=== PATIENT | female | born 1980 | race Caucasian/White ===

== ENCOUNTER 2017-09-14 19:45 | Emergency (ER) | payer OTHER ==
[2017-09-14 19:55] VITALS: BMI 23.6
[2017-09-14 20:33] LABS: BILIRUBIN,URINE NEGATIVE (NEGATIVE); BLOOD/HEMOGLOBIN,URINE NEGATIVE (NEGATIVE); GLUCOSE, URINE NEGATIVE (NEGATIVE); KETONES,URINE NEGATIVE (NEGATIVE); LEUKOCYTE ESTERASE ,URINE NEGATIVE (NEGATIVE); NITRITES,URINE NEGATIVE (NEGATIVE); PROTEIN,URINE NEGATIVE (NEGATIVE); UROBILINOGEN,URINE NORMAL (NORMAL)
[2017-09-14 20:41] LABS: APPEARANCE,URINE CLEAR (CLEAR); BACTERIA,URINE NEGATIVE /HPF (NEGATIVE); COLOR,URINE YELLOW (YELLOW); RBC,URINE 0-1 /HPF (NONE SEEN); SQUAMOUS EPITHELIAL CELL,UR FEW /HPF (NEGATIVE)
[2017-09-14 20:44] LABS: BASOPHILS # (AUTO) 0.1 X10^3/uL (0.0-0.1); BASOPHILS % (AUTO) 0.8 % (0.2-1.0); EOSINOPHILS # (AUTO) 0.8 x10^3/uL (0.0-0.2); EOSINOPHILS % (AUTO) 9.8 % (0.9-2.9); HEMATOCRIT 38.8 % (36.0-47.0); HEMOGLOBIN 13.4 g/dL (12.0-16.0); LYMPHOCYTES # (AUTO) 3.2 X10^3/uL (1.3-2.9); LYMPHOCYTES % (AUTO) 41.6 % (21.0-51.0); MEAN CORPUSCULAR HEMOGLOBIN 30.8 pg (27.0-34.0); MEAN CORPUSCULAR HGB CONC 34.5 g/dL (33.0-35.0); MEAN CORPUSCULAR VOLUME 89.5 fL (80.0-100.0); MEAN PLATELET VOLUME 10.2 fL (7.4-11.0); MONOCYTES # (AUTO) 0.6 x10^3/uL (0.3-0.8); MONOCYTES % (AUTO) 7.4 % (0.0-13.0); NEUTROPHILS # (AUTO) 3.1 x10^3/uL (2.2-4.8); NEUTROPHILS % (AUTO) 40.4 % (42.0-75.0); PLATELET COUNT 171 X10^3/uL (150.0-450.0); RED BLOOD COUNT 4.33 X10^6/uL (3.5-5.4); RED CELL DISTRIBUTION WIDTH 12.7 % (11.6-16.5); WHITE BLOOD COUNT 7.7 X10^3/uL (3.6-10.0)
--- NOTE | 2017-09-14 20:54 | DR.GENAD ---
HPI - PCP Primary Care Physician: BRYANT KOROMA - HPI Comment HPI Comment: has been to PCP, dx'd with neuropathic pain. Still with numbness fingers and toes, bilat LE swelling. Pt has had prior episodes and this 'comes and goes' - Complaint/Symptoms Chief Complaint:: LOWER EXT SWOLLEN PT C/O NUMBNESS IN TOES AND FINGERS AND CHEST PAIN FOR 2 WEEKS - Nurses notes reviewed Nurses Notes Review: Yes - Source History Provided: Patient - Mode of Arrival Mode of Arrival: Ambulatory - Timing Onset of Chief Complaint: 08/31/17 Came on: Gradually - Duration Duration: Since Onset - Severity Severity: Moderate PMH - PMH Past Medical History: No Past Surgical History: Yes Surgical History: Cholecystectomy, Hysterectomy - Family History History of Family Medical Conditions: Yes Family Medical History: Diabetes Mellitus, [place], Coronary Artery Disease, Heart Failure, Sudden Cardiac , Hypertension - Social History Type of Tobacco Use: Cigarettes Does any household member use tobacco: Yes Alcohol Use: None Do you use any recreational Drugs:: No Lives With: Family Lives Where: Home - infectious screening In the last 2 months have you had wt loss of >10#?: NO Have you had fever, night sweats or hemotysis?: No Have you traveled outside the country in the last 6 months?: No Isolation: Standard ROS - Review of Systems Constitutional: No Symptoms Reported Eyes: No Symptoms Reported ENTM: No Symptoms Reported Respiratoy: No Symptoms Reported Cardiovascular: Chest Pain, Edema (lower ext edema) Gastrointestinal/Abdominal: No Symptoms Reported Genitourinary: No Symptoms Reported Neurological: Paresthesia Integumentary: No Symptoms Reported Hematologic/Lymphatic: No Symptoms Reported Endocrine: No Symptoms Reported Psychiatric: No Symptoms Reported All Other Systems: Reviewed and Negative PE - Vital Signs Vitals: Temperature 97.8 F Pulse Rate 100 Respiratory Rate 18 Blood Pressure 116/58 O2 Sat by Pulse Oximetry 100 - General Limitations: No Limitations General Appearance: Alert, In No Apparent Distress - Head Head Exam: Normal Inspection - Eyes Eye exam: Normal Appearance - ENT ENT Exam: Normal Exam - Neck Neck Exam: Normal Inspection, Full ROM, Trachea Midline. negative: Tenderness, Meningismus, Lymphadenopathy - Chest Chest Inspection: Symmetric Chest Wall Rise - Respiratory Respiratory Exam: Normal Lung Sounds Bilat Respiratory Exam: Bilateral Clear to Auscultation - Cardiovascular Cardiovascular Exam: Regular Rate, Normal Heart Sounds. negative: Systolic Murmur, Diastolic Murmur - Abdominal Exam Abdominal Exam: Normal Inspection, Normal Bowel Sounds, Soft - Extremities Extremities Exam: Edema - Neurologic Neurological Exam: Alert, Oriented X3 - Psychiatric Psychiatric Exam: Normal Affect, Normal Mood - Skin Skin Exam: Warm, Dry, Intact ROR - Labs Reviewed Laboratory Results Reviewed?: Yes Result Diagrams: 09/14/17 20:35 09/14/17 20:35 Laboratory: WBC 7.7 X10^3/uL (3.6-10.0) 09/14/17 20:35 RBC 4.33 X10^6/uL (3.5-5.4) 09/14/17 20:35 Hgb 13.4 g/dL (12.0-16.0) 09/14/17 20:35 Hct 38.8 % (36.0-47.0) 09/14/17 20:35 MCV 89.5 fL (80.0-100.0) 09/14/17 20:35 MCH 30.8 pg (27.0-34.0) 09/14/17 20:35 MCHC 34.5 g/dL (33.0-35.0) 09/14/17 20:35 RDW 12.7 % (11.6-16.5) 09/14/17 20:35 Plt Count 171 X10^3/uL (150.0-450.0) 09/14/17 20:35 MPV 10.2 fL (7.4-11.0) 09/14/17 20:35 Neut % 40.4 % (42.0-75.0) L 09/14/17 20:35 Lymph % 41.6 % (21.0-51.0) 09/14/17 20:35 [place] % 7.4 % (0.0-13.0) 09/14/17 20:35 Eos % 9.8 % (0.9-2.9) H 09/14/17 20:35 Baso % 0.8 % (0.2-1.0) 09/14/17 20:35 Neut # 3.1 x10^3/uL (2.2-4.8) 09/14/17 20:35 Lymph # 3.2 X10^3/uL (1.3-2.9) H 09/14/17 20:35 [place] # 0.6 x10^3/uL (0.3-0.8) 09/14/17 20:35 Eos # 0.8 x10^3/uL (0.0-0.2) H 09/14/17 20:35 Baso # 0.1 X10^3/uL (0.0-0.1) 09/14/17 20:35 Absolute Nucleated RBC 0.0 /100WBC 09/14/17 20:35 INR Target Range - 09/14/17 20:35 INR 0.89 (0.8-1.3) 09/14/17 20:35 PTT 31.5 SECONDS (22.9-36.5) 09/14/17 20:35 PTT Comment - 09/14/17 20:35 D-Dimer 135 ng/mL (0-400) 09/14/17 20:35 Sodium 139 mmol/L (136-145) 09/14/17 20:35 Corrected Sodium TNP 09/14/17 20:35 Potassium 3.4 mmol/L (3.5-5.1) L 09/14/17 20:35 Chloride 103 mmol/L (98-107) 09/14/17 20:35 Carbon Dioxide 28.9 mmol/L (21-32) 09/14/17 20:35 BUN 19 mg/dL (7-18) H 09/14/17 20:35 Creatinine 0.91 mg/dL (0.55-1.02) 09/14/17 20:35 Est GFR (MDRD) Af Amer > 60 (>60) 09/14/17 20:35 Est GFR (MDRD) Non-Af > 60 (>60) 09/14/17 20:35 Glucose 77 mg/dL (65-99) 09/14/17 20:35 Calcium 8.3 mg/dL (8.5-10.1) L 09/14/17 20:35 Corrected Calcium TNP 09/14/17 20:35 Magnesium 1.9 mg/dL (1.7-2.9) 09/14/17 20:35 Total Bilirubin 0.10 mg/dL (0.2-1.0) L 09/14/17 20:35 AST 36 Units/L (15-37) 09/14/17 20:35 ALT 56 Units/L (12-78) 09/14/17 20:35 Alkaline Phosphatase 73 Units/L (46-116) 09/14/17 20:35 Creatine Kinase 106 Units/L (26-192) 09/14/17 20:35 CK-MB (CK-2) 1.4 ng/mL (0-4.0) 09/14/17 20:35 CK/CKMB % Calc 1.3 % (<4) 09/14/17 20:35 Troponin I < 0.02 ng/mL (0-1.5) 09/14/17 20:35 B-Natriuretic Peptide 6.0 pg/mL (0-79) 09/14/17 20:35 Total Protein 7.2 g/dL (6.4-8.2) 09/14/17 20:35 Albumin 3.4 g/dL (3.4-5.0) 09/14/17 20:35 Globulin 3.8 g/dL (2.5-4.5) 09/14/17 20:35 Albumin/Globulin Ratio 0.9 Ratio (1.1-2.1) L 09/14/17 20:35 Specimen Type Clean catch urine 09/14/17 20:24 Urine Color Yellow (YELLOW) 09/14/17 20:24 Urine Appearance Clear (CLEAR) 09/14/17 20:24 Urine pH 7.0 (5.0 - 8.0) 09/14/17 20:24 Ur Specific [place] 1.015 (1.000-1.030) 09/14/17 20:24 Urine Protein Negative (NEGATIVE) 09/14/17 20:24 Urine Glucose (UA) Negative (NEGATIVE) 09/14/17 20:24 Urine Ketones Negative (NEGATIVE) 09/14/17 20:24 Urine Occult Blood Negative (NEGATIVE) 09/14/17 20:24 Urine Nitrite Negative (NEGATIVE) 09/14/17 20:24 Urine Bilirubin Negative (NEGATIVE) 09/14/17 20:24 Urine Urobilinogen Normal (NORMAL) 09/14/17 20:24 Ur Leukocyte Esterase Negative (NEGATIVE) 09/14/17 20:24 Urine RBC 0-1 /HPF (NONE SEEN) 09/14/17 20:24 Urine WBC 2-3 /HPF (NONE SEEN) 09/14/17 20:24 Ur Squamous Epith Cells Few /HPF (NEGATIVE) 09/14/17 20:24 Urine Bacteria Negative /HPF (NEGATIVE) 09/14/17 20:24 Ur Culture Indicated? No/not indicated 09/14/17 20:24 - XRAY XRAY Interpreted by: Radiologist XRAY Findings: CXR nothing acute - EKG Compared to prior EKG Dated: 09/14/17 (normal EKG, no priors available) - Diagnosis Discharge Problem: Swelling of extremity of unknown etiology - Discharge Plan Disposition: 01 HOME, SELF-CARE Condition: Stable - Follow ups/Referrals Follow ups/Referrals: GA HURTADO [Primary Care Provider] - 3 days - Instructions Additional Notes - Additional Notes Additional Notes: reviewed w/u at length with pt. I urged her to f/u PCP for lower ext runoff studies. Pt reassured with normal Ddimer.
[2017-09-14 21:01] LABS: BLOOD UREA NITROGEN 19 mg/dL (7-18); CALCIUM 8.3 mg/dL (8.5-10.1); CARBON DIOXIDE 28.9 mmol/L (21-32); CHLORIDE 103 mmol/L (98-107); CREATININE 0.91 mg/dL (0.55-1.02); SODIUM 139 mmol/L (136-145); TROPONIN I < 0.02 ng/mL (0-1.5); eGFR BLACK RACES > 60 (>60); eGFR NON BLACK RACES > 60 (>60)
[2017-09-14 21:05] LABS: ALANINE AMINOTRANSFERASE 56 Units/L (12-78); ALBUMIN 3.4 g/dL (3.4-5.0); ALKALINE PHOSPHATASE 73 Units/L (46-116); ASPARTATE AMINO TRANSFERASE 36 Units/L (15-37); CKMB % 1.3 % (<4); CREATINE KINASE 106 Units/L (26-192); CREATINE KINASE MB 1.4 ng/mL (0-4.0); MAGNESIUM 1.9 mg/dL (1.7-2.9); TOTAL PROTEIN 7.2 g/dL (6.4-8.2)
--- NOTE | 2017-09-14 22:04 | RAD ---
Chest AP portable Indication: Chest pain Findings: There is no pneumothorax, effusion or consolidation. Heart size is. Overlying monitoring le ads obscure minimal detail. Impression: No acute chest process. Reported By:
[2017-09-14 22:53] VITALS: BP 127/62
== END 2017-09-14 22:51 | disposition home or self-care (01) ==
LOC: ER 20:06
DX: R60.0 Localized edema (principal)
CPT/HCPCS: 36415; 71045; 80053; 81001; 82550; 82553; 83735; 83880; 84484; 85025; 85378; 85610; 85730; 93005; 93010; 99283